=== PATIENT | female | born 1950 | race Caucasian/White ===

== ENCOUNTER 2023-03-27 09:08 | Outpatient (REF) | payer MEDICARE, SELFPAY ==
[2023-03-27 10:51] LABS: Alanine Aminotransferase 11 U/L (0-31); Albumin Level 4.1 g/dL (3.5-5.0); Alkaline Phosphatase 34 U/L (39-117); Anion Gap 14 (12-20); Aspartate Amino Transferase 20 U/L (5-31); Bilirubin Direct 0.3 mg/dL (0.0-0.5); Bilirubin Total 0.5 mg/dL (0.0-1.0); Blood Urea Nitrogen 15 mg/dL (9-16); Calcium 9.9 mg/dL (8.4-10.2); Carbon Dioxide 27 mmol/L (22-29); Chloride 104 mmol/L (96-108); Estimated Glomerular Filt Rate > 60; Glucose Random 101 mg/dL (60-115); Potassium 3.4 mmol/L (3.3-5.1); Sodium 142 mmol/L (135-145); Total Protein 7.5 g/dL (6.5-8.0)
[2023-03-27 11:18] LABS: Folate 15.5 ng/mL (> or = 4.0); Vitamin B12 747 pg/mL (200-900)
== END 2023-03-27 09:09 | disposition home or self-care (01) ==
LOC: HO.LAB 09:08
PROVIDERS: PCP Nurse Practitioner Family; Visit Provider Psychiatry & Neurology Neurology
DX: F03.90 Unspecified dementia, unspecified severity, without behavioral disturbance, psychotic disturbance, mood disturbance, and anxiety (principal); F10.10 Alcohol abuse, uncomplicated
CPT/HCPCS: 36415; 80048; 80076; 82607; 82746

== ENCOUNTER 2023-05-08 08:35 | Outpatient (REF) | payer MEDICARE, SELFPAY ==
--- NOTE | ~2023-05-08 | MR_ITS ---
MRI OF THE BRAIN WITHOUT IV CONTRAST INDICATION: Multifactorial dementia. COMPARISON: None available. TECHNIQUE: Multiplanar multisequence MR imaging of the brain was obtained without IV contrast. FINDINGS: There is global cerebral volume loss, there is advanced chronic microangiopathy, and there are chronic lacunar infarcts within the deep ramesh nuclei bilaterally in the periventricular white matter bilaterally. There is no hydrocephalus, extra-axial surface collection, or herniation. Absent distal cervical and intradural left vertebral artery flow void suggesting slow flow within versus occlusion of this vessel. There is no acute infarct on diffusion-weighted imaging. There is no intracranial hemorrhage on the gradient recalled echo acquisition. Punctate focus of chronic hemosiderin staining within the inferior right subinsular region posteriorly. The midline structures are normal. The cerebellar tonsils are normally positioned. The cerebellum and brainstem are normal. The craniocervical junction is normal. Osseous marrow signal intensity is homogenous. The visualized soft tissues are unremarkable. MR/MR head/brain wo con IMPRESSION: - No acute intracranial findings. There is global cerebral volume loss, there is advanced chronic microangiopathy, and there are chronic lacunar infarcts within the deep ramesh nuclei bilaterally in the periventricular white matter bilaterally. - Absent distal cervical and intradural left vertebral artery flow void suggesting slow flow within versus occlusion of this vessel.
== END 2023-05-08 08:36 | disposition home or self-care (01) ==
LOC: HO.MRI 08:35
PROVIDERS: PCP Nurse Practitioner Family; Visit Provider Psychiatry & Neurology Neurology
DX: F03.90 Unspecified dementia, unspecified severity, without behavioral disturbance, psychotic disturbance, mood disturbance, and anxiety (principal)
CPT/HCPCS: 70551

== ENCOUNTER 2025-02-23 13:12 | Outpatient (AMB) | payer MEDICARE, SELFPAY ==
--- NOTE | 2025-02-23 13:14 | A.OFFVIS_ITS ---
Intake Visit Reasons: 6 Months Dementia Allergies No Known Allergies Allergy (Verified 02/22/25 08:48) HPI Comments Details: 74 yo RH woman, a parapraprofessional in a local elementary school, with h/o relatively uncontrolled HTN, an admission to [facility] in 2020 when she was admitted for severe HTN and diagnosed wtih a stroke, h/o alcohol abuse, lung cancer diagnosed in 2024, and multifactorial degenerative and vascular dementia. She is presenting with a follow-up for metastatic non-small cell lung cancer primarily involving the lungs, with metastatic sites including the spleen, intestines, and lymph nodes. Initially diagnosed approximately six months ago following respiratory complaints, she underwent biopsies and scans confirming adenocarcinoma, stage 4. Immunotherapy with pembrolizumab was initiated, showing a reduction in tumor size from 11 cm to 4 cm, with current stabilization. Despite concerns about potential side effects of immunotherapy, she reports managing well with main issues of fatigue. She also deals with major depressive disorder and generalized anxiety disorder, managed with escitalopram, and continues to receive robust familial support. [facility] Medical History (Updated 02/23/25 @ 13:31 by Kaden Mann MD) Alzheimer disease Alcohol abuse Cerebral microvascular disease Multifactorial dementia Review of Systems Const Details: - Respiratory: Reports recent respiratory symptoms. - Gastrointestinal: Denies new gastrointestinal symptoms. - General: Reports significant fatigue as the primary concern. - Psychiatric: Reports benefits from escitalopram for mood stabilization. Physical Exam Neuro Other: Mental Status: Alert and oriented to person, place, and time. Normal attention. Normal spontaneous speech, fluency, and comprehension. Cranial Nerves: CN II: Visual howell full to confrontation, visual acuity intact. CN III, IV, : Pupils equal, round, reactive to light and accommodation. Extraocular movements are normal. CN V: Facial sensation is normal. CN VII: Facial movements symmetrical. CN VIII: Hearing intact to bedside conversation is normal. CN IX, X: Palate elevates symmetrically. CN XI: Shoulder shrug and head turn symmetrical. CN XII: Tongue midline without atrophy or fasciculations. Extrapyramidal: Full facial expressions and blinking. No rigidity. Movements are appropriate with no tremor or abnormality. Speech: Normal; no dysarthria or tremor. Assessment & Plan Assessment & Plan (1) Multifactorial dementia: Comment: MRI brain WO at [facility] in Apr 2023: Mod diff atrophy and mod to sev MVD MRI brain WO at [facility] in 2020: Mod to severe MVD Code(s): F03.90 - Unspecified dementia, unspecified severity, without behavioral disturbance, psychotic disturbance, mood disturbance, and anxiety Category: Medical (2) Cerebral microvascular disease: Code(s): I67.89 - Other cerebrovascular disease Category: Medical (3) Alzheimer disease: Code(s): G30.9 - Alzheimer's disease, unspecified; F02.80 - Dementia in other diseases classified elsewhere, unspecified severity, without behavioral disturbance, psychotic disturbance, mood disturbance, and anxiety Category: Medical Plan Impression: Mod severe multifactorial dementia in this woman with lung cancer Rec: a: Continue Escitaloprim 10mg a day b: Stay active Medications: New escitalopram oxalate 10 mg PO DAILY 90 tabs 1RF Coding Level of Care Code Est Pt Level 4 (21562) Diagnoses Multifactorial dementia F03.90 Cerebral microvascular disease I67.89 Alzheimer disease G30.9; F02.80
--- OUTSIDE RECORDS SUMMARY | 2025-02-23 14:26 | XMS_ITS | Patient Health Record ---
Author Organization [facility] Address [address] [place] [address] Support Name Relationship Address Phone MARIAH GAN Guarantor Unknown Reason For Referral No Information Medications Medication SIG (Take, Route, Fr equency, Duration) Notes Start Date End Date Status Vitamin D3 1000 IU 1 ORAL daily; Duration: -3 Hamilton-MJ 09/2011 Active Vitamin B Complex 1 ORAL daily; Duration: -3 Hamilton-MJ 08/29 Active Problems Problem Type SNOMED Code ICD Code Onset Dates Problem Status W/U Status Risk Notes Problem Obesity (088344122) Obesity, unspecified (278.00) Active confirmed Diag Problem Benign essential hypertension (3246086) Essential hypertension, benign (401.1) Active confirmed Major Problem Menopausal symptom (82136271) Symptomatic menopausal or female climacteric states (627.2) Active confirmed Major Problem Gynecological examination normal (975449218711878) Routine gynecological examination (V72.31) Active confirmed Major Problem Screening for malignant neoplasm of colon (299872168) Special screening for malignant neoplasms, colon (V76.51) Active confirmed Major Plan Of Treatment No Information Insurance Providers Payer Name Payer Address Payer Phone Subscriber Number Group Number Insured Name Patient Relationship to Insured Coverage Start Date Coverage End Date [facility] [address] [address] [place] [address] [id number] MARIAH GAN Self - patient is the insured 2
--- OUTSIDE RECORDS SUMMARY | 2025-02-23 14:26 | XMS_ITS | Encounter Summary ---
Author Organization [facility] Address [address] [place] [address] Phone Care Team Providers Care Boxcar Weigher Name Role Phone Selina Epstein MD Primary Care Provider [phone] Encounter Details Date Type Department Care Team (Late st Contact Info) Description 03/30/2024 Documentation Only [facility] [place], [address] [place] [phone] [place], [place] [address] [place] [address] Social History Tobacco Use Types Packs/Day Years Used Date Smoking Tobacco: Never Assessed Comments Unknown Sex and Gender Information Value Date Recorded Sex Assigned at Not on file Legal Sex Female 8:36 AM EST Gender Identity Not on file Sexual Orientation Not on file documented as of this encounter Plan of Treatment Not on file documented as of this encounter Visit Diagnoses Not on filedocumented in this encounter Care Teams Boxcar Weigher Relationship Specialty Start Date End Date Selina Epstein MD [address] [place] [id number] PCP - General Clinical Trial Assistant 03/30/24 documented as of this encounter
--- OUTSIDE RECORDS SUMMARY | 2025-02-23 14:26 | XMS_ITS | Clinical Summary ---
Author Organization [facility], Address [address] [place] [address] [address] [place] [address] Phone Care Team Providers Care Auto Claims Adjuster Name Role Phone Selina Epstein MD Primary Care Provider [phone] Allergies Active Allergy Reactions Criticality Noted Date Comments Penicillins 08/31/2024 Medications VITAMIN D PO Take 2,000 Units by mouth 1 (one) time each day Active Cyanocobalamin (VITAMIN B12 PO) Take 1,000 mcg by mouth 1 (one) time each day Active valACYclovir (VALTREX) 1 g tablet Take 1,000 mg by mouth 1 (one) time each day Active rosuvastatin (CRESTOR) 40 MG tablet Take 40 mg by mouth 1 (one) time each day Active hydroCHLOROthiaz augustine 12.5 MG tablet Take 12.5 mg by mouth 1 (one) time each day Active escitalopram (LEXAPRO) 10 MG tablet Take 10 mg by mouth 1 (one) time each day Active aspirin (ST JANELL) 81 MG EC tablet Take 81 mg by mouth 1 (one) time each day Active Active Problems Problem Noted Date Diagnosed Date Chronic kidney disease, stage 2 (mild) Chronic fatigue Hypercholesterolemia Hypertension Immunizations Immunization Administration Dates Next Due Moderna SARS-COV-2 03/21/2021,08/26/2020, 021 Shingrix 07/03/2021 Td, Unspecified 08/26/2024 Family History Medical History Relation Comments Hypertension Father Lung cancer Mother Relation Status Comments Father Mother Social History Tobacco Use Types Packs/Day Years Used Date Smoking Tobacco: Former Cigarettes Smokeless Tobacco: Never Comments Unknown Sex and Gender Information Value Date Recorded Sex Assigned at Not on file Legal Sex Female 8:36 AM EST Gender Identity Not on file Sexual Orientation Not on file Plan of Treatment Health Maintenance Due Date Last Done Comments Pneumococcal Vaccine: 50+ Ye ars (1 of 2 - PCV) 1969 Influenza Vaccine (#1) 2025 Hepatitis B Vaccine Aged Out No longe r eligible based on patient's age to complete this topic [place] [address] Care Teams Auto Claims Adjuster Relationship Specialty Start Date End Date Selina Epstein MD [address] [place] [address] [id number] PCP - General Ice Cream Truck Driver 03/30/24
--- OUTSIDE RECORDS SUMMARY | 2025-02-23 14:26 | XMS_ITS | Encounter Summary ---
Author Organization [facility] Address [address] [place] [address] Phone Care Team Providers Care Accelerator Operator Name Role Phone Selina Epstein MD Primary Care Provider [phone] Encounter Details Date Type Department Care Team (Late st Contact Info) Description 04/20/2024 Documentation Only [facility] [place], [address] [phone] [place], [place] [address] [place] [address] Social History Tobacco Use Types [...] on filedocumented in this encounter Care Teams Accelerator Operator Relationship Specialty Start Date End Date Selina Epstein MD [address] [place] [id number] PCP - General Ehs Specialist 03/30/24 documented as of this encounter
--- OUTSIDE RECORDS SUMMARY | 2025-02-23 14:26 | XMS_ITS | Encounter Summary ---
Author Organization [facility] Address [address] [place] [address] Phone Care Team Providers Care Oncology Physician Name Role Phone Selina Epstein MD Primary Care Provider [phone] Encounter Details Date Type Department Care Team (Late st Contact Info) Description 08/31/2024 Documentation Only [facility] [place], [address] [place] [place] [address] Opal Delgado [address] [place] [address] Social History Tobacco Use Types [...] on filedocumented in this encounter Care Teams Oncology Physician Relationship Specialty Start Date End Date Selina Epstein MD [address] [place] [phone] PCP - General Paper Folding Machine Operator 03/30/24 documented as of this encounter
--- OUTSIDE RECORDS SUMMARY | 2025-02-23 14:26 | XMS_ITS | Encounter Summary ---
Author Organization [facility] Address [address] [place] [address] Phone Care Team Providers Care Undercover Agent Name Role Phone Selina Epstein MD Primary Care Provider [phone] Encounter Details Date Type Department Care Team (Late st Contact Info) Description 08/31/2024 Documentation Only [facility] [place], [address] [place] [address] Opal Delgado [address] [place] [address] Social History Tobacco Use Types [...] on filedocumented in this encounter Care Teams Undercover Agent Relationship Specialty Start Date End Date Selina Epstein MD [address] [place] [phone] PCP - General Electric Blanket Wirer 03/30/24 documented as of this encounter
--- OUTSIDE RECORDS SUMMARY | 2025-02-23 14:26 | XMS_ITS | Encounter Summary ---
Author Organization [facility] Address [address] [place] [address] Phone Care Team Providers Care Naphthol Soaping Machine Operator Name Role Phone Selina Epstein MD Primary Care Provider [phone] Encounter Details Date Type Department Care Team (Late st Contact Info) Description 08/31/2024 Documentation Only [facility] [place], [address] [place] [address] Opal Delgado [address] [place] [address] Social History Tobacco Use Types [...] on filedocumented in this encounter Care Teams Naphthol Soaping Machine Operator Relationship Specialty Start Date End Date Selina Epstein MD [address] [place] [phone] PCP - General Medical Accounts Receivable Specialist 03/30/24 documented as of this encounter
--- OUTSIDE RECORDS SUMMARY | 2025-02-23 14:26 | XMS_ITS | Encounter Summary ---
Author Organization [facility] Address [address] [place] [address] Phone Care Team Providers Care Television Repair Teacher Name Role Phone Selina Epstein MD Primary Care Provider [phone] Encounter Details Date Type Department Care Team (Late st Contact Info) Description 08/31/2024 Documentation Only [facility] [place], [address] [place] [address] Opal Delgado [address] [place] [address] Social History Tobacco Use Types [...] on filedocumented in this encounter Care Teams Television Repair Teacher Relationship Specialty Start Date End Date Selina Epstein MD [address] [place] [id number] PCP - General Maintenance Of Way Clerk 03/30/24 documented as of this encounter
--- OUTSIDE RECORDS SUMMARY | 2025-02-23 14:26 | XMS_ITS | Encounter Summary ---
Author Organization [facility] Address [address] [place] [address] Phone Care Team Providers Care Certified Orthotist Name Role Phone Selina Epstein MD Primary Care Provider [phone] Encounter Details Date Type Department Care Team (Late st Contact Info) Description 08/31/2024 Documentation Only [facility] [place], [address] [place] [address] Opal Delgado [address] [place] [address] Social History Tobacco Use Types [...] on filedocumented in this encounter Care Teams Certified Orthotist Relationship Specialty Start Date End Date Selina Epstein MD [address] [place] [phone] PCP - General Director Corporate Compliance 03/30/24 documented as of this encounter
== END 2025-02-23 13:38 | disposition home or self-care (01) ==
LOC: HO.HSM 13:12
PROVIDERS: PCP Family Medicine; Visit Provider Psychiatry & Neurology Neurology
DX: F03.90 Unspecified dementia, unspecified severity, without behavioral disturbance, psychotic disturbance, mood disturbance, and anxiety (principal); I67.89 Other cerebrovascular disease; G30.9 Alzheimer's disease, unspecified; F02.80 Dementia in other diseases classified elsewhere, unspecified severity, without behavioral disturbance, psychotic disturbance, mood disturbance, and anxiety
CPT/HCPCS: 99214

== ENCOUNTER → 2025-02-23 13:12 | Outpatient (BNVA) | payer MEDICARE, SELFPAY | PROVIDERS: PCP Family Medicine; Visit Provider Psychiatry & Neurology Neurology | DX: I10 Essential (primary) hypertension (principal); I67.89 Other cerebrovascular disease; D30.9 Benign neoplasm of urinary organ, unspecified; F02.80 Dementia in other diseases classified elsewhere, unspecified severity, without behavioral disturbance, psychotic disturbance, mood disturbance, and anxiety | CPT/HCPCS: 99212 ==